=== PATIENT | male | born 2000 | race African-American/Black ===

== ENCOUNTER 2021-09-18 19:31 | Emergency (ER) | payer MEDICAID ==
[~2021-09-18] VITALS: Ht 188 cm; Wt 109.0 kg
[2021-09-18 19:35] VITALS: BP 130/106
[2021-09-18] MEDS ORDERED: IBUP-2029 MT (20:06)
== END 2021-09-18 20:12 | disposition home or self-care (01) ==
LOC: ER 19:31
DX: U07.1 COVID-19 (principal); B34.9 Viral infection, unspecified
CPT/HCPCS: 71045; 99284; C9803; U0003; U0005

== ENCOUNTER 2023-09-28 22:06 | Emergency (ER) | payer MEDICAID ==
[~2023-09-28] VITALS: Ht 188 cm; Wt 107.0 kg
[~2023-09-28 22:06] MED LIST: IBUP-2029 MT
[2023-09-28 22:14] VITALS: BP 124/82; PULSE 94; RESP 14; TEMP 98.9; O2SAT 97
[2023-09-29] MEDS ORDERED: KETOROLAC 30MG/ML VIAL IM ONE
[2023-09-29] MEDS ORDERED: METOCLOPRAMIDE HCL 10MG TABLET PO ONE
== END 2023-09-29 00:54 | disposition home or self-care (01) ==
LOC: ER 22:06
DX: B34.9 Viral infection, unspecified (principal); R51.9 Headache, unspecified
CPT/HCPCS: 99283; 96372; J8597; J1885